=== PATIENT | female | born 1995 | race Caucasian/White ===

== ENCOUNTER 2018-07-06 14:29 | Observation (INO) | payer OTHER ==
[2018-07-06] MEDS ORDERED: Ketorolac INJ* 15 MG/ML 1 ML VIAL IM ONE (14:37)
[2018-07-06] MEDS ORDERED: NS 0.9% 1000 ML* 2,000 ML IV ONE (14:40)
--- NOTE | 2018-07-06 14:40 | ED ---
Abdominal Pain/Female - HPI Summary HPI Summary: This patient is a 22 year old F BIBA to [facility] from [facility] with a chief complaint of RLQ pain that began 5 days ago and that has gotten worse since. The patient rates the stabbing pain 5/10 in severity. Symptoms aggravated by walking, movement, and when she needs to urinate. Patient denies n/v/d and fever. Pt states she has eaten chips and yogurt at 0900 and has not eaten yet. Pt is on BC and does not get a regular period. - History of Current Complaint Chief Complaint: EDAbdPain Stated Complaint: ABD PAIN Hx Obtained From: Patient Onset/Duration: Still Present, Other Timing: Constant Severity Initially: Severe Severity Currently: Moderate Pain Intensity: 5 Pain Scale Used: 0-10 Numeric Location: Discrete At: RLQ Radiates: No Aggravating Factor(s): Other: - walking, movement, and when she needs to urinate. Associated Signs and Symptoms: Positive: Negative - NVD Allergies/Adverse Reactions: Allergies Allergy/AdvReac Type Severity Reaction Status Date / Time No Known Allergies Allergy Verified 07/06/18 15:03 PMH/Surg Hx/FS Hx/Imm Hx Endocrine/Hematology History: Denies: Hx Diabetes, Hx Thyroid Disease Cardiovascular History: Denies: Hx Cardiomegaly, Hx Coronary Artery Disease, Hx Hypercholesterolemia Respiratory History: Denies: Hx Chronic Bronchitis, Hx Cystic Fibrosis History: Denies: Hx Benign Prostatic Hyperplasia Infectious Disease History: No Infectious Disease History: Denies: Traveled Outside the [place] in Last 30 Days - Family History Known Family History: Positive: Cardiac Disease Negative: Diabetes, Renal Disease, Respiratory Disease, Seizure Disorder, Blood Disorder - Social History Occupation: Student Hx Substance Use: No Substance Use Type: Reports: None Hx Tobacco Use: No Smoking Status (MU): Never Smoked Tobacco Review of Systems Negative: Fever Positive: Abdominal Pain. Negative: Vomiting, Diarrhea, Nausea All Other Systems Reviewed And Are Negative: Yes Physical Exam - Summary Physical Exam Summary: Appearance: Well-appearing, Well-nourished, lying in bed comfortably Skin: Warm, dry, no obvious rash Eyes: sclera anicteric, no conjunctival pallor ENT: mucous membranes moist, pharynx appears normal Neck: Supple, nontender Respiratory: Clear to auscultation, no signs of respiratory distress Cardiovascular: tachycardia. S1, S2. No murmurs. Normal distal pulses in tibial and radial bilaterally. Abdomen: Soft, TTP in the RLQ with rebound and guarding. normal active bowel sounds present. No psoas sign Musculoskeletal: Normal, Strength/ROM Intact Neurological: A&Ox3, awake and alert, mentation is normal, speech is fluent and appropriate Psychiatric: affect is normal, does not appear anxious or depressed Triage Information Reviewed: Yes Vital Signs On Initial Exam: Initial Vitals Temp Pulse Resp BP Pulse Ox 98.8 F 128 20 147/83 100 07/06/18 14:29 07/06/18 14:29 07/06/18 14:29 07/06/18 14:29 07/06/18 14:29 Vital Signs Reviewed: Yes Diagnostics - Vital Signs Vital Signs Temp Pulse Resp BP Pulse Ox 07/06/18 14:29 98.8 F 128 20 147/83 100 - Laboratory Result Diagrams: 07/06/18 15:02 07/06/18 15:02 Lab Statement: Any lab studies that have been ordered have been reviewed, and results considered in the medical decision making process. - CT CT ABD pelvis CT Interpretation Completed By: Radiologist - Acute uncomplicated appendicitis. 2. Right ovarian likely hemorrhagic cyst. ED physician has reviewed this radiology report. - Additional Comments Diagnostic Additional Comments: US appendix reveals, per radiologist, THE APPENDIX WAS NOT VISUALIZED LIMITING THE STUDY, DEPENDING ON THE PATIENT'S CLINICAL STATUS CONSIDER A CT OF THE ABDOMEN AND PELVIS WITH INTRAVENOUS AND ORAL CONTRAST FOR FURTHER EVALUATION. ED physician has reviewed this radiology report. Transvaginal US reveals, per radiologist, INVOLUTING RIGHT FOLLICULAR CYST AND SMALL AMOUNT OF FREE INTRAPERITONEAL FLUID. ED physician has reviewed this radiology report. Abdominal Pain Fem Course/Dx - Course Course Of Treatment: This is a young woman with a somewhat atypical history for appendicitis in that she was not anorectic and only had 1 bout of vomiting just today. Similarly, her physical exam both initially on reexamination is fairly benign with only minimal, nonlateralizing lower abdominal tenderness without peritoneal signs. Ultrasound of the appendix was nondiagnostic, pelvic ultrasound did show a involuting right ovarian cyst with a small amount of free fluid. CT scan shows signs of acute uncomplicated appendicitis with a perhaps hemorrhagic right ovarian cyst. Despite the atypical nature of her presentation , I do think that her symptoms are likely due from acute appendicitis rather than hemorrhagic ovarian cyst. I have discussed the case with the on-call surgeon who will review the CT scan himself and get back to me. - Diagnoses Provider Diagnoses: Acute appendicitis - Provider Notifications Discussed Care Of Patient With: Alejandro Gibson Time Discussed With Above Provider: 19:50 Instructed by Provider To: Other - He has agreed to see the patient in the OR. Discharge - Sign-Out/Discharge Documenting (check all that apply): Patient Departure - Discharge Plan Condition: Stable Disposition: ADMITTED TO [facility] - Billing Disposition and Condition Condition: STABLE Disposition: Admitted to [facility] - Attestation Statements Document Initiated by Kiarae: Yes Documenting Scribe: Chino Miguel Provider For Whom Isiibe is Documenting (Include Credential): Maverick Chaudhry MD Scribe Attestation: I, Chino Miguel , scribed for Maverick Chaudhry MD on 07/08/18 at 1424. Scribe Documentation Reviewed: Yes Provider Attestation: The documentation as recorded by the Chino yip accurately reflects the service I personally performed and the decisions made by me, Maverick Chaudhry MD
[2018-07-06 15:17] LABS: ABS Basophils 0 10^3/ul (0-0.2); ABS Eosinophils 0.1 10^3/ul (0-0.6); ABS Lymphocytes 1.3 10^3/ul (1.0-4.8); ABS Monocytes 0.6 10^3/ul (0-0.8); ABS Neutrophils 7.4 10^3/ul (1.5-7.7); ABS Nucleated RBC 0 10^3/ul; Eosinophil % 0.6 % (0-6); Hematocrit 43 % (35-47); Hemoglobin 14.6 g/dl (12.0-16.0); Lymphocyte % 14.4 % (25-47); Mean Corpuscular HGB Conc 34 g/dl (31-36); Mean Corpuscular Hemoglobin 32 pg (27-31); Mean Corpuscular Volume 95 fL (80-97); Mean Platelet Volume 7.6 um3 (7.4-10.4); Nucleated Red Blood Cells % 0; Platelet Count 288 10^3/ul (150-450); Red Cell Distribution Width 12 % (10.5-15); White Blood Count 9.4 10^3/ul (3.5-10.8)
[2018-07-06 15:21] LABS: Urine Appearance Clear; Urine Blood Negative (Negative); Urine Color Straw; Urine Ketones Trace (Negative); Urine Protein Negative (Negative); Urine Specific Gravity 1.003 (1.010-1.030); Urine Urobilinogen Negative (Negative)
--- NOTE | 2018-07-06 16:14 | RAD ---
INDICATION: Right lower quadrant pain. COMPARISON: There are no relevant prior studies available for comparison. TECHNIQUE: Multiple real-time images of the right lower quadrant were obtained using a graded compression technique. FINDINGS: No free intraperitoneal fluid or localized fluid collections are seen. The appendix was not visualized limiting the study. IMPRESSION: THE APPENDIX WAS NOT VISUALIZED LIMITING THE STUDY, DEPENDING ON THE PATIENT'S CLINICAL STATUS CONSIDER A CT OF THE ABDOMEN AND PELVIS WITH INTRAVENOUS AND ORAL CONTRAST FOR FURTHER EVALUATION.
--- NOTE | 2018-07-06 16:17 | RAD ---
INDICATION: Right lower quadrant pain. COMPARISON: There are no relevant prior studies available for comparison. TECHNIQUE: Multiple real-time transvaginal images of the pelvis were obtained. FINDINGS: The uterus is normal in size, shape and echogenicity. The uterus measured 7.0 x 3.2 x 4.6 cm. The endometrial echo measured 1.0 cm in thickness. The right ovary measured 4.5 x 2.0 x 3.8 cm. The left ovary measured 3.7 x 1.6 x 1.9 cm. There is vascular flow within both ovaries. There is a 1.8 x 0.3 x 1.0 cm involuting right ovarian cyst. There is a small amount of free intraperitoneal fluid in the cul-de-sac and right adnexal region. IMPRESSION: INVOLUTING RIGHT FOLLICULAR CYST AND SMALL AMOUNT OF FREE INTRAPERITONEAL FLUID.
[2018-07-06] MEDS ORDERED: Iohexol 300* (CONTRAST) 10 ML SDV IV ONE (18:44)
--- NOTE | 2018-07-06 19:38 | RAD ---
EXAM: CT Abdomen and Pelvis With Intravenous Contrast CLINICAL HISTORY: 22 years old, female; Pain; Abdominal pain; Rebound pain; Right lower quadrant (rlq); Patient HX: Rlq pain, suspect appendicitis TECHNIQUE: Axial computed tomography images of the abdomen and pelvis with intravenous contrast. All CT scans at this facility use at least one of these dose optimization techniques: automated exposure control; mA and/or kV adjustment per patient size (includes targeted exams where dose is matched to clinical indication); or iterative reconstruction. Coronal and sagittal reformatted images were created and reviewed. CONTRAST: 72 mL of OMNI 300 administered intravenously. COMPARISON: No relevant prior studies available. FINDINGS: Lung bases: Normal. No mass. No consolidation. ABDOMEN: Liver: Normal. No masses. Portal and hepatic veins are patent. Gallbladder and bile ducts: Normal. No radiopaque calculi. No ductal dilation. Pancreas: Normal. No mass. No ductal dilation. Spleen: Normal. No splenomegaly. Adrenals: Normal. No mass. Kidneys and ureters: No renal solid cortical lesions, calculi, or pelvocaliectasis. Stomach and bowel: Incompletely distended grossly normal stomach. Normal caliber small bowel. No colonic masses or segmental wall thickening. PELVIS: Appendix: Dilated appendix measuring up to 0.9 cm which is diffusely thick walled with mild adjacent periappendiceal stranding. Appendix is infra-cecal. Bladder: Thin-walled bladder with no focal nodularity, perivesicular stranding, or calcifications. Reproductive: Low attenuating cystic focus right adnexa measures 2.4 x 2.4 cm and does not measure simple fluid. Uterus and left ovary are normal. ABDOMEN and PELVIS: Intraperitoneal space: Normal. No pneumoperitoneum. No ascities. Bones/joints: No fractures. No suspicious bone lesions. Soft tissues: Normal. No hernias. Vasculature: Normal caliber aorta with no evidence of dissection or rupture. Patent IVC. Circumaortic left renal vein. Lymph nodes: Normal. No enlarged lymph nodes. IMPRESSION: 1. Acute uncomplicated appendicitis. 2. Right ovarian likely hemorrhagic cyst. ACR White Paper guidelines (Amadeo, et. al. JACR 2013; 10(9):675-681) suggest that no follow-up is necessary. To contact [facility] with a general question: [facility] - [phone] For direct physician to physician contact: Physician Hotline - [phone] [facility] ([facility] ID #[id number])
[2018-07-06] MEDS ORDERED: Piperacillin/Tazobac ADVAN(*) 3.375 GM in NS 0.9% 100 ML* 100 ML IVPB ONE (19:55)
[2018-07-06] MEDS ORDERED: Bupivacaine 0.25% SDV* 30 ML ONE (20:17)
--- NOTE | 2018-07-06 21:17 | HP ---
H&P (Free Text) History and Physical: CC: RLQ abd pain HPI: This is a pleasant 22 yo F with a 4 day h/o of gradual onset RLQ pain starting last Thursday. She denies N/V/D, F/C. She felt some constipation over the weekend in retrospect. She noted worsening pain Thursday and today her pain was worse with walking/movement. [facility] and sent to [facility] for evaluation. She has no similar pains in the past. She denies dysuria, hematuria, vaginal discharge. Her LMP was early June. She had normal labs, abdominal and TV ultrasound only showed R ovarian cyst. A CT scan did show a 9mm appendix, c/w appendicitis. Surgical evaluation was requested by Dr. Juarez. PMH/PSH: anxiety Meds: none NKDA SH: no tob; occasional EtOH; no drugs; senior at [employer]. FH: father has heart disease; mother had appendicitis; no h/o DVT, bleeding problems ROS: 14 point review was completed. Pertinent +/- as above, otherwise negative. PE: Vital Signs Temp 98.9 F 07/06/18 20:51 Pulse 100 07/06/18 20:51 Resp 20 07/06/18 20:51 BP 125/68 07/06/18 20:51 Pulse Ox 100 07/06/18 20:51 Gen: well developed, well nourished; NAD. HEENT: NCAT; EOMI; MMM; no otorhinorrhea. Neck: supple, no JERAMY; ML trachea. Lungs: CTA B Heart: Reg, tachy, s1s2. Abd: ND, no scars; +BS; soft with tenderness to percussion in RLQ; +Rovsing sx. Ext: warm; no c/c/e. Intake & Output 07/06/18 07/06/18 07/07/18 06:59 18:59 06:59 Intake Total 1999 Balance 1999 Weight 120 lb Intake: IV Fluids 1999 Laboratory Results - last 24 hr 07/06/18 07/06/18 07/06/18 15:02 15:02 15:02 WBC 9.4 RBC 4.50 Hgb 14.6 Hct 43 MCV 95 MCH 32 H MCHC 34 RDW 12 Plt Count 288 MPV 7.6 Neut % (Auto) 78.7 Lymph % (Auto) 14.4 L [place] % (Auto) 6.1 Eos % (Auto) 0.6 Baso % (Auto) 0.2 Absolute Neuts (auto) 7.4 Absolute Lymphs (auto) 1.3 Absolute Monos (auto) 0.6 Absolute Eos (auto) 0.1 Absolute Basos (auto) 0 Absolute Nucleated RBC 0 Nucleated RBC % 0 Sodium 139 Potassium 3.6 Chloride 105 Carbon Dioxide 25 Anion Gap 9 BUN 11 Creatinine 0.76 Est GFR ( Amer) 117.4 Est GFR (Non-Af Amer) 97.0 BUN/Creatinine Ratio 14.5 Glucose 100 Calcium 9.3 Total Bilirubin 0.50 AST 19 ALT 9 Alkaline Phosphatase 54 Total Protein 7.3 Albumin 4.7 Globulin 2.6 Albumin/Globulin Ratio 1.8 Lipase 14 Beta HCG, Quant < 0.60 Urine Color Straw Urine Appearance Clear Urine pH 6.0 Ur Specific [place] 1.003 L Urine Protein Negative Urine Ketones Trace A Urine Blood Negative Urine Nitrate Negative Urine Bilirubin Negative Urine Urobilinogen Negative Ur Leukocyte Esterase Negative Urine Glucose Negative Imaging: CT images reviewed by me; findings as above. IMPRESSION: 22 yo F with early acute appendicitis. PLAN/RECOMMENDATION: Laparoscopic appendectomy. The nature of the procedure, indications, risks, benefits and alternatives, including no treatment, were discussed. Risks were explained including not limited to bleeding, infection, pain, scars, blood clots, pneumonia, visceral injury, open procedure, N/V and risks of GETA. We discussed expectations regarding hospital stay, follow up, and recovery, including return to full activity. All questions have been answered. She stated her understanding and agreed to proceed.
[2018-07-06] MEDS ORDERED: Acetaminophen TAB* 325 MG PO PRN ×2 (21:20→23:28)
[2018-07-06] MEDS ORDERED: HYDROmorphone INJ1* 1 MG/ML SYRINGE IV PRN (21:20)
[2018-07-06] MEDS ORDERED: oxyCODONE/Acetamin 5/325 MG* TAB PO PRN (21:20)
[2018-07-06] MEDS ORDERED: Ibuprofen TAB* 600 MG PO PRN (21:20)
[2018-07-06] MEDS ORDERED: Ondansetron INJ* 2 MG/ML VIAL IV PRN (21:20)
[2018-07-06] MEDS ORDERED: Bupivacaine 0.25% EPI 200,000* 30 ML SDV ONE (22:36)
[2018-07-06] MEDS ORDERED: Midazolam* 1 MG/ML 2 ML VIAL (2 MG) ONE (22:43)
[2018-07-06] MEDS ORDERED: fentaNYL* 50 MCG/ML 2 ML VIAL (100 MCG VIAL) ONE (22:43)
[2018-07-06] MEDS ORDERED: Propofol* 10 MG/ML 20 ML BTL IV PUSH ONE (23:15)
[2018-07-06] MEDS ORDERED: Ketorolac INJ* 30 MG/ML 1 ML VIAL ONE (23:15)
[2018-07-06] MEDS ORDERED: Famotidine IV* 10 MG/ML 2 ML (20 mg) ONE (23:15)
[2018-07-06] MEDS ORDERED: Lidocaine 2% PF * 5 ML VIAL ONE (23:15)
[2018-07-06] MEDS ORDERED: Dexamethasone IV* 4 MG/ML 1 ML (4 MG) ONE (23:15)
[2018-07-06] MEDS ORDERED: Mivacurium Chloride* 20 MG/10 ML VIAL IV ONE (23:15)
[2018-07-06] MEDS ORDERED: Ondansetron INJ* 2 MG/ML VIAL ONE (23:15)
[2018-07-06] MEDS ORDERED: Naloxone* 0.4 MG/ML 1 ML VIAL IV PRN (23:28)
[2018-07-06] MEDS ORDERED: DiMENhydriNATE IV* 50 MG/ML VIAL IV PUSH PRN (23:28)
[2018-07-06] MEDS ORDERED: Scopolamine 1.5 mg* PATCH TRANSDERM PRN (23:28)
[2018-07-06] MEDS ORDERED: Buffered Lidocaine 0.9% SYRIN* 5 ML/SYR SYRINGE INTRADERM ONE (23:28)
[2018-07-06] MEDS ORDERED: PROCHLORPERAZINE INJ 5 MG/ML 2 ML VIAL IV PRN (23:28)
--- NOTE | 2018-07-06 23:47 | BRIEFOPN ---
Brief Operative Note - Surgery Procedures: PREOP DX: ACUTE APPENDICITIS POSTOP DX: SAME PROC: LAP APPENDECTOMY SURG: MECENAS ASSIST: NONE ANES: JORDAN; DIRK EBL: MIN SPEC: APPENDIX DRAIN/COMPL: NONE COND: STABLE TO RR; EXTUBATED. FIND: EARLY APPENDICITIS.
[2018-07-07] MEDS ORDERED: fentaNYL* 50 MCG/ML 2 ML VIAL (100 MCG VIAL) ONE (00:01)
[2018-07-07] MEDS ORDERED: DiMENhydriNATE IV* 50 MG/ML VIAL ONE (00:01)
[2018-07-07] MEDS: fentaNYL* 50 MCG/ML 2 ML VIAL (100 MCG VIAL) IV PRN ×2 (00:02→00:28)
[2018-07-07] MEDS ORDERED: Acetaminophen TAB* 325 MG ONE (00:37)
[2018-07-07 11:29] VITALS: BP 112/62
[2018-07-09] MEDS ORDERED: Scopolamine PATCH Remove* 1 NOTE MISC PATCH OFF ONE (23:30)
--- NOTE | 2018-07-14 09:48 | OP ---
CC: [facility] * DATE OF SURGERY: 07/06/18 - ROOM #332 DATE OF : 89 SURGEON: Dr. Gibson. CONTAMINATION CONSULTANT: None. ANESTHESIA: General endotracheal. ANESTHESIOLOGIST: Dr. Robertson. PRE-OP DIAGNOSIS: Acute appendicitis. POST-OP DIAGNOSIS: Acute appendicitis. OPERATIVE PROCEDURE: Laparoscopic appendectomy. ESTIMATED BLOOD LOSS: Minimal. IV FLUIDS: Crystalloid. SPECIMENS: Appendix. DRAINS: None. COMPLICATIONS: None. COUNTS: Instrument, needle, and sponge counts were correct. DESCRIPTION OF PROCEDURE: The patient was brought to the operating room and placed on the table supine. Sequential compression devices were placed on both lower extremities. General anesthesia was administered. She was positioned and padded appropriately. She received appropriate intravenous antibiotics. After she was prepped and draped in the usual sterile fashion, time-out was performed. Local anesthetic was infiltrated into the skin and soft tissue prior to making each incision. Entry to the abdomen was through a transumbilical incision made vertically. After accessing the peritoneal cavity, a 12-mm trocar was placed and carbon dioxide was insufflated to a pressure of 15 mmHg. Under direct visualization, 5-mm trocars were placed in the suprapubic midline and in the left lower quadrant. The appendix was identified in the right lower quadrant and it appeared to be acutely inflamed with no suppurative changes or gangrene noted. The appendix was elevated and in the mesentery at the base of the appendix a window was created the appendix was divided from the cecum using an EndoGIA stapler with a may cartridge. The mesentery of the appendix was divided with the EndoGIA stapler with a garcia cartridge. The appendix was then placed into an endoscopic retrieval bag and withdrawn through the umbilical site. Hemostasis was assured. Staple lines noted to be intact. Ports were then removed under direct visualization and carbon dioxide was released. Umbilicus was closed with 0 Vicryl in interrupted figure-of- eight fashion. Skin incisions were all closed with 4-0 Monocryl in subcuticular fashion and Dermaflex was applied to the wounds. The patient tolerated the procedure well. She was extubated and transferred to the recovery room in stable condition. [id number]/[facility] #: [id number] [facility]ITAL[facility]imi
== END 2018-07-07 14:50 | disposition home or self-care (01) ==
LOC: ED 14:29 → SSU 21:20
PROVIDERS: ADMIT Surgery; ATTEND Surgery
DX: K37 Unspecified appendicitis (principal); R10.31 Right lower quadrant pain; K59.00 Constipation, unspecified
CPT/HCPCS: 36415; 74177; 76705; 76830; 80053; 81003; 83690; 84702; 85025; 86703; 88304; 96365; 96372; 99284; A9270-GY; C1776; G0378; J1100; J1240; J1885; J2250; J2405; J2543; J2704; J3010; Q9967